=== PATIENT | female | born 1950 | race Caucasian/White ===

== ENCOUNTER 2016-07-08 13:55 | Emergency (ER) | payer MEDICARE ==
[~2016-07-08 13:55] MED LIST: ADULT LOW DOSE81 MG; ADVAIR 2501 DISK W/D; ALEVE220 M1 PO; ALPRAZOLAM0.25 M2 PO; ANTIVERT25 MG; ASMANEX 2214 PUFF/IN INH; BACLOFEN10 MG; BYETTA5 MCG/0.02; BYETTA5 MCG/0.02 SC; BYETTA5 MCG/0.02 SQ; BYSTOLIC10 MG PO; CARAFATE1 G/10 ML PO; CYCLOBENZAPRINE10 MG PO; CYCLOBENZAPRINE5 M1 PO; DULERA 100 MCG/13 GM IH; DULERA 200 MCG/13 G1 INH; DULERA 200 MCG/13 GM IH; DULERA 200 MCG/13 GM INH; EXFORGE 10-3201 TAB PO; FERROUS SU325 ( 65 ); FERROUS SULFATE1 TAB PO; FLEXERIL 10MG PO; FUROSEMIDE80 MG; GABAPENTIN100 MG; GABAPENTIN300 MG PO; GLIMEPIRIDE4 MG; GLIMEPIRIDE4 MG PO; GLUCOPHAGE XR500 MG; H PO; HUMULIN N100 U/ML; HUMULIN N100 U/ML SQ; IBUPROFEN800 MG PO; INDERAL60 MG; IPRATROPIUM BR21 MCG INH; LASIX80 M1 PO; LEVEMIR100 U/ML SQ; LEVEMIR100 UNITS/ SC; LEXAPRO10 MG PO; LEXAPRO20 M2 PO; LEXAPRO20 MG; LISINOPRIL40 M1 PO; LISINOPRIL40 MG; LYRICA50 MG/CAP PO; METFORMIN HCL1000 MG PO; MOMETASONE IH; NORCO 5/325 TAB1 TAB PO; NOVOLOG FL100 UNIT/2 SC; NOVOLOG100 U/M; NOVOLOG100 UNIT/1 SQ; OMEPRAZOLE20 M2 PO; POTASSIUM CHLO20 ME3 PO; PREDNISONE10 M1 PO; PREMARIN0.625 MG; PREVACID30 M1 PO; PREVACID30 M2 PO; SULFAMETHOXAZOL1 TAB PO; TYLENOL #31 TAB PO; TYLENOL325 M1 PO; TYLENOL325 MG PO; VALIUM10 MG PO; VANCOMYCIN HCL125 M1 PO; VENTOLIN HFA18 GM; VICTOZA0.6 MG/0.1 SQ; VIIBRYD40 MG PO; VITAMIN D50000 UNIT PO; XANAX0.5 M1 PO; XIFAXAN550 MG PO; XOPENEX HFA15 GM IH; XOPENEX HFA15 GM PO
[2016-07-08] MEDS ORDERED: TRESIBA FL100 UNIT/1 SC (17:14)
[2016-07-08] MEDS ORDERED: VITAMIN D35000 UNI2 PO (17:14)
[2016-07-08] MEDS ORDERED: CALCIUM 600 +1 EA24 PO (17:15)
[2016-07-08] MEDS ORDERED: INHALER (17:16)
[2016-07-08] MEDS ORDERED: NEBULIZER SOLUTION (17:16)
[2016-07-08] MEDS ORDERED: PROLIA60 MG/1 M1 SC (17:18)
[2016-07-08] MEDS ORDERED: NORCO 5-325 TA1 EACH PO (18:09)
[2016-07-28] MEDS ORDERED: NORVASC10 M2 PO (14:28)
[2016-07-28] MEDS ORDERED: TRAMADOL HCL50 M2 PO (15:21)
[2016-11-08] MEDS ORDERED: DULERA 100 MCG/13 G1 INH (12:25)
[2016-11-08] MEDS ORDERED: BYSTOLIC20 M1 PO (13:37)
[2016-11-08] MEDS ORDERED: LYRICA50 MG/CAP PO (13:37)
[2017-01-03] MEDS ORDERED: PACERONE200 M1 PO (13:06)
[2017-01-03] MEDS ORDERED: LASIX40 M1 PO (13:09)
[2017-01-03] MEDS ORDERED: LEVEMIR100 UNITS/ SC (13:11)
[2017-01-03] MEDS ORDERED: STOP THE FOLLOWING (13:16)
[2017-01-03] MEDS ORDERED: OMEPRAZOLE40 M2 PO (13:32)
[2017-01-03] MEDS ORDERED: TRESIBA FL100 UNIT/1 SC (15:07)
== END 2016-07-08 18:29 ==
LOC: EDMED 13:55
DX: S00.11XA Contusion of right eyelid and periocular area, initial encounter (principal); S20.211A Contusion of right front wall of thorax, initial encounter; E10.9 Type 1 diabetes mellitus without complications; I10 Essential (primary) hypertension; J44.9 Chronic obstructive pulmonary disease, unspecified; J45.909 Unspecified asthma, uncomplicated; Z86.73 Personal history of transient ischemic attack (TIA), and cerebral infarction without residual deficits; Z79.4 Long term (current) use of insulin; Z79.51 Long term (current) use of inhaled steroids; Z79.899 Other long term (current) drug therapy; W19.XXXA Unspecified fall, initial encounter; Y92.019 Unspecified place in single-family (private) house as the place of occurrence of the external cause

== ENCOUNTER 2016-07-28 15:26 | Emergency (ER) | payer MEDICARE ==
[~2016-07-28 15:26] MED LIST changes: +CALCIUM 600 +1 EA24 PO; +INHALER; +NEBULIZER SOLUTION; +NORCO 5-325 TA1 EACH PO; +NORVASC10 M2 PO; +PROLIA60 MG/1 M1 SC; +TRAMADOL HCL50 M2 PO; +TRESIBA FL100 UNIT/1 SC; +VITAMIN D35000 UNI2 PO
[2016-11-08] MEDS ORDERED: DULERA 100 MCG/13 G1 INH (12:25)
[2016-11-08] MEDS ORDERED: BYSTOLIC20 M1 PO (13:37)
[2016-11-08] MEDS ORDERED: LYRICA50 MG/CAP PO (13:37)
[2017-01-03] MEDS ORDERED: PACERONE200 M1 PO (13:06)
[2017-01-03] MEDS ORDERED: LASIX40 M1 PO (13:09)
[2017-01-03] MEDS ORDERED: LEVEMIR100 UNITS/ SC (13:11)
[2017-01-03] MEDS ORDERED: STOP THE FOLLOWING (13:16)
[2017-01-03] MEDS ORDERED: OMEPRAZOLE40 M2 PO (13:32)
[2017-01-03] MEDS ORDERED: TRESIBA FL100 UNIT/1 SC (15:07)
== END 2016-07-28 15:40 ==
LOC: EDMED 15:26
DX: S20.211A Contusion of right front wall of thorax, initial encounter (principal); J45.909 Unspecified asthma, uncomplicated; E11.22 Type 2 diabetes mellitus with diabetic chronic kidney disease; I12.9 Hypertensive chronic kidney disease with stage 1 through stage 4 chronic kidney disease, or unspecified chronic kidney disease; N18.9 Chronic kidney disease, unspecified; Z79.4 Long term (current) use of insulin; Z90.710 Acquired absence of both cervix and uterus; Z98.890 Other specified postprocedural states; Z79.51 Long term (current) use of inhaled steroids; Z79.899 Other long term (current) drug therapy; W18.11XA Fall from or off toilet without subsequent striking against object, initial encounter; Y92.019 Unspecified place in single-family (private) house as the place of occurrence of the external cause

== ENCOUNTER 2016-09-15 17:03 | Emergency (ER) | payer MEDICARE ==
[2016-09-15 19:51] LABS: BASO % 0.4 % (0-2); EOS % 6.3 % (0-7); EOSINOPHIL ABSOLUTE COUNT 0.2 tho/cmm (0.0-0.7); HGB-HEMOGLOBIN 11.7 gm/dl (12.0-15.5); IMMATURE GRANULOCYTES ABSOLUTE 0.01 tho/cmm (0-0.03); IMMATURE GRANULOCYTES PERCENT 0.4 % (0-0.3); LYMPH % 30.7 % (20-45); LYMPH ABSOLUTE COUNT 0.8 tho/cmm (0.8-4.5); MCH (MEAN CORPUSCULAR HGB) 30.8 pg (28.0-32.0); MCHC MEAN CORPUSCULAR HGB CONC 33.4 % (32.0-36.0); MCV (MEAN CELL VOLUME) 92.1 fl (82.0-96.0); MEAN PLATELET VOLUME 11.3 cmc (9.4-12.4); MONO % 8.7 % (0-12); MONOCYTE ABSOLUTE COUNT 0.2 tho/cmm (0.0-1.2); NEUTROPHIL ABSOLUTE COUNT 1.4 tho/cmm (1.6-8.0); NEUTROPHIL-AUTOMATED 1.4 tho/cmm (1.6-8.0); NEUTROPHILS % 53.5 % (40-80); PLATELET COUNT 66 tho/cmm (150-450); RED CELL DISTRIBUTION WIDTH 14.1 % (12.4-16.4); WHITE BLOOD COUNT 2.5 tho/cmm (4.0-10.0)
[2016-09-15 19:52] LABS: INR 1.1 INR (0.9-1.1); PROTHROMBIN TIME 12.8 SECONDS (9.0-13.6)
[2016-09-15 20:02] LABS: ALB/GLOB RATIO 0.9 (0.8-2.0); ALBUMIN 2.9 g/dl (3.5-5.0); ALKALINE PHOSPHATASE 94 U/L (33-138); ALT/SGPT 25 U/L (12-78); ANION GAP 9 mmol/L (0-20); AST/SGOT 31 U/L (10-40); BILIRUBIN,TOTAL 0.5 mg/dl (0-1.5); BLOOD UREA NITROGEN 20 mg/dl (6-24); CALCIUM 8.4 mg/dl (8.5-10.5); CARBON DIOXIDE-VENOUS 29 mmol/L (22-32); CHLORIDE 109 mmol/l (96-110); CREATININE 1.36 mg/dl (0.50-1.10); GLUCOSE 118 mg/dL (70-110); POTASSIUM 4.3 mmol/L (3.7-5.1); SODIUM 143 mmol/L (135-145); eGFR VALUE FOR BLACK 47 mL/Min
[2016-11-08] MEDS ORDERED: DULERA 100 MCG/13 G1 INH (12:25)
[2016-11-08] MEDS ORDERED: BYSTOLIC20 M1 PO (13:37)
[2016-11-08] MEDS ORDERED: LYRICA50 MG/CAP PO (13:37)
[2017-01-03] MEDS ORDERED: PACERONE200 M1 PO (13:06)
[2017-01-03] MEDS ORDERED: LASIX40 M1 PO (13:09)
[2017-01-03] MEDS ORDERED: LEVEMIR100 UNITS/ SC (13:11)
[2017-01-03] MEDS ORDERED: STOP THE FOLLOWING (13:16)
[2017-01-03] MEDS ORDERED: OMEPRAZOLE40 M2 PO (13:32)
[2017-01-03] MEDS ORDERED: TRESIBA FL100 UNIT/1 SC (15:07)
== END 2016-09-15 20:45 ==
LOC: EDMED 17:03
PROVIDERS: Emergency Medicine
DX: R51 Headache (principal); I50.9 Heart failure, unspecified; I11.0 Hypertensive heart disease with heart failure; E10.9 Type 1 diabetes mellitus without complications; J44.9 Chronic obstructive pulmonary disease, unspecified; J45.909 Unspecified asthma, uncomplicated; Z86.73 Personal history of transient ischemic attack (TIA), and cerebral infarction without residual deficits; N19 Unspecified kidney failure; K76.9 Liver disease, unspecified; Z79.4 Long term (current) use of insulin; Z79.899 Other long term (current) drug therapy
CPT/HCPCS: J7030

== ENCOUNTER 2016-12-11 15:53 | Inpatient (IN) | payer MEDICARE ==
[~2016-12-11] VITALS: Ht 152.4 cm; Wt 86.2 kg
[~2016-12-11 15:53] MED LIST changes: +BYSTOLIC20 M1 PO; +DULERA 100 MCG/13 G1 INH
[2016-12-11] MEDS ORDERED: HYDRALAZINE HCL25 M1 PO (16:21)
[2016-12-11 16:43] LABS: BASO % 0.3 % (0-2); EOSINOPHIL ABSOLUTE COUNT 0.2 tho/cmm (0.0-0.7); HGB-HEMOGLOBIN 11.3 gm/dl (12.0-15.5); IMMATURE GRANULOCYTES ABSOLUTE 0.01 tho/cmm (0-0.03); IMMATURE GRANULOCYTES PERCENT 0.2 % (0-0.3); LYMPH % 15.2 % (20-45); LYMPH ABSOLUTE COUNT 0.9 tho/cmm (0.8-4.5); MCH (MEAN CORPUSCULAR HGB) 30.2 pg (28.0-32.0); MCHC MEAN CORPUSCULAR HGB CONC 32.3 % (32.0-36.0); MCV (MEAN CELL VOLUME) 93.6 fl (82.0-96.0); MEAN PLATELET VOLUME 12.5 cmc (9.4-12.4); MONO % 11.4 % (0-12); MONOCYTE ABSOLUTE COUNT 0.7 tho/cmm (0.0-1.2); NEUTROPHIL ABSOLUTE COUNT 4.3 tho/cmm (1.6-8.0); NEUTROPHIL-AUTOMATED 4.3 tho/cmm (1.6-8.0); NEUTROPHILS % 69.9 % (40-80); PLATELET COUNT 107 tho/cmm (150-450); RED BLOOD COUNT 3.74 mil/cmm (4.00-5.20); RED CELL DISTRIBUTION WIDTH 15.1 % (12.4-16.4); WHITE BLOOD COUNT 6.1 tho/cmm (4.0-10.0)
[2016-12-11] MEDS ORDERED: ALEVE220 M3 PO (16:58)
[2016-12-11 17:00] LABS: ALBUMIN 3.4 g/dl (3.5-5.0); ALKALINE PHOSPHATASE 96 U/L (33-138); ALT/SGPT 23 U/L (12-78); BLOOD UREA NITROGEN 65 mg/dl (6-24); CALCIUM 7.5 mg/dl (8.5-10.5); CARBON DIOXIDE-VENOUS 19 mmol/L (22-32); CHLORIDE 104 mmol/l (96-110); GLUCOSE 126 mg/dL (70-110); SODIUM 133 mmol/L (135-145); eGFR VALUE FOR BLACK 12 mL/Min
[2016-12-11 17:12] LABS: ANION GAP 15 mmol/L (0-20); AST/SGOT 31 U/L (10-40); POTASSIUM 5.4 mmol/L (3.7-5.1)
[2016-12-11 19:58] LABS: ANION GAP 10 mmol/L (0-20); BLOOD UREA NITROGEN 67 mg/dl (6-24); CALCIUM 7.8 mg/dl (8.5-10.5); CARBON DIOXIDE-VENOUS 23 mmol/L (22-32); CHLORIDE 105 mmol/l (96-110); GLUCOSE 118 mg/dL (70-110); POTASSIUM 5.3 mmol/L (3.7-5.1); SODIUM 133 mmol/L (135-145); eGFR VALUE FOR BLACK 12 mL/Min
[2016-12-12 00:01] LABS: URINE TOTAL PROTEIN-RANDOM 6.1 mg/dl (<11.8)
[2016-12-12 02:54] LABS: URINE PRT/CR RATIO 0.09 Ratio (0.0-0.20)
[2016-12-12 05:39] LABS: BASO % 0.2 % (0-2); EOS % 4.2 % (0-7); EOSINOPHIL ABSOLUTE COUNT 0.2 tho/cmm (0.0-0.7); HCT-HEMATOCRIT 31.7 % (34.0-49.0); HGB-HEMOGLOBIN 10.3 gm/dl (12.0-15.5); IMMATURE GRANULOCYTES ABSOLUTE 0.02 tho/cmm (0-0.03); IMMATURE GRANULOCYTES PERCENT 0.4 % (0-0.3); LYMPH % 14.3 % (20-45); LYMPH ABSOLUTE COUNT 0.7 tho/cmm (0.8-4.5); MCH (MEAN CORPUSCULAR HGB) 30.4 pg (28.0-32.0); MCHC MEAN CORPUSCULAR HGB CONC 32.5 % (32.0-36.0); MCV (MEAN CELL VOLUME) 93.5 fl (82.0-96.0); MONO % 13.9 % (0-12); MONOCYTE ABSOLUTE COUNT 0.7 tho/cmm (0.0-1.2); NEUTROPHIL ABSOLUTE COUNT 3.3 tho/cmm (1.6-8.0); NEUTROPHIL-AUTOMATED 3.3 tho/cmm (1.6-8.0); PLATELET COUNT 86 tho/cmm (150-450); RED BLOOD COUNT 3.39 mil/cmm (4.00-5.20); RED CELL DISTRIBUTION WIDTH 15.2 % (12.4-16.4)
[2016-12-12 05:57] LABS: ALKALINE PHOSPHATASE 102 U/L (33-138); ALT/SGPT 22 U/L (12-78); ANION GAP 17 mmol/L (0-20); AST/SGOT 27 U/L (10-40); BILIRUBIN,TOTAL 0.9 mg/dl (0-1.5); BLOOD UREA NITROGEN 66 mg/dl (6-24); CALCIUM 7.3 mg/dl (8.5-10.5); CARBON DIOXIDE-VENOUS 20 mmol/L (22-32); CHLORIDE 105 mmol/l (96-110); CREATININE 4.19 mg/dl (0.50-1.10); GLUCOSE 154 mg/dL (70-110); POTASSIUM 5.1 mmol/L (3.7-5.1); SODIUM 137 mmol/L (135-145); eGFR VALUE FOR BLACK 12 mL/Min
[2016-12-12 16:56] LABS: IRON 100 ug/dl (37-170); IRON BINDING CAPACITY 255 ug/dl (250-450)
[2016-12-12 18:40] LABS: URINE BILIRUBIN NEGATIVE (NEG); URINE BLOOD NEGATIVE (NEG); URINE GLUCOSE (UA) NEGATIVE (NEG); URINE KETONE NEGATIVE (NEG); URINE LEUKOCYTE ESTERASE POSITIVE (NEG); URINE NITRITE NEGATIVE (NEG); URINE PROTEIN NEGATIVE (NEG); URINE SPECIFIC GRAVITY 1.015 (1.003-1.030)
[2016-12-12 18:48] LABS: URINE APPEARANCE CLEAR; URINE COLOR YELLOW
[2016-12-12 18:49] LABS: URINE AMORPHOUS 1+; URINE EPITHELIAL CELLS RARE /[HPF] (0-10); URINE RBC 0 /[HPF] (0-5); URINE WBC 0 /[HPF] (0-5)
[2016-12-13 05:57] LABS: BLOOD UREA NITROGEN 68 mg/dl (6-24); CALCIUM 6.9 mg/dl (8.5-10.5); CARBON DIOXIDE-VENOUS 20 mmol/L (22-32); CHLORIDE 106 mmol/l (96-110); CREATININE 3.89 mg/dl (0.50-1.10); GLUCOSE 128 mg/dL (70-110); PHOSPHOROUS 4.4 mg/dl (2.5-4.9); SODIUM 138 mmol/L (135-145); eGFR VALUE FOR BLACK 13 mL/Min
[2016-12-13 06:01] LABS: ANION GAP 17 mmol/L (0-20); MAGNESIUM 3.1 mg/dl (1.8-2.6); POTASSIUM 4.5 mmol/L (3.7-5.1)
[2016-12-14 04:55] LABS: BASO % 0.5 % (0-2); EOSINOPHIL ABSOLUTE COUNT 0.2 tho/cmm (0.0-0.7); HCT-HEMATOCRIT 30.8 % (34.0-49.0); HGB-HEMOGLOBIN 10.1 gm/dl (12.0-15.5); IMMATURE GRANULOCYTES ABSOLUTE 0.01 tho/cmm (0-0.03); IMMATURE GRANULOCYTES PERCENT 0.3 % (0-0.3); LYMPH % 12.3 % (20-45); LYMPH ABSOLUTE COUNT 0.5 tho/cmm (0.8-4.5); MCH (MEAN CORPUSCULAR HGB) 30.3 pg (28.0-32.0); MCHC MEAN CORPUSCULAR HGB CONC 32.8 % (32.0-36.0); MCV (MEAN CELL VOLUME) 92.5 fl (82.0-96.0); MEAN PLATELET VOLUME 11.7 cmc (9.4-12.4); MONO % 14.2 % (0-12); MONOCYTE ABSOLUTE COUNT 0.5 tho/cmm (0.0-1.2); NEUTROPHIL ABSOLUTE COUNT 2.6 tho/cmm (1.6-8.0); NEUTROPHIL-AUTOMATED 2.6 tho/cmm (1.6-8.0); NEUTROPHILS % 68.7 % (40-80); PLATELET COUNT 75 tho/cmm (150-450); RED BLOOD COUNT 3.33 mil/cmm (4.00-5.20); RED CELL DISTRIBUTION WIDTH 14.9 % (12.4-16.4); WHITE BLOOD COUNT 3.7 tho/cmm (4.0-10.0)
[2016-12-14 05:09] LABS: ANION GAP 11 mmol/L (0-20); BLOOD UREA NITROGEN 64 mg/dl (6-24); CALCIUM 6.9 mg/dl (8.5-10.5); CARBON DIOXIDE-VENOUS 24 mmol/L (22-32); CHLORIDE 105 mmol/l (96-110); CREATININE 3.44 mg/dl (0.50-1.10); GLUCOSE 128 mg/dL (70-110); MAGNESIUM 2.8 mg/dl (1.8-2.6); POTASSIUM 4.3 mmol/L (3.7-5.1); SODIUM 136 mmol/L (135-145); eGFR VALUE FOR BLACK 15 mL/Min
[2016-12-15 05:12] LABS: BASO % 0.3 % (0-2); EOS % 4.7 % (0-7); EOSINOPHIL ABSOLUTE COUNT 0.2 tho/cmm (0.0-0.7); HCT-HEMATOCRIT 31.1 % (34.0-49.0); HGB-HEMOGLOBIN 10.2 gm/dl (12.0-15.5); IMMATURE GRANULOCYTES ABSOLUTE 0.01 tho/cmm (0-0.03); IMMATURE GRANULOCYTES PERCENT 0.3 % (0-0.3); LYMPH % 11.1 % (20-45); LYMPH ABSOLUTE COUNT 0.4 tho/cmm (0.8-4.5); MCH (MEAN CORPUSCULAR HGB) 30.3 pg (28.0-32.0); MCHC MEAN CORPUSCULAR HGB CONC 32.8 % (32.0-36.0); MCV (MEAN CELL VOLUME) 92.3 fl (82.0-96.0); MEAN PLATELET VOLUME 11.1 cmc (9.4-12.4); MONO % 16.7 % (0-12); MONOCYTE ABSOLUTE COUNT 0.6 tho/cmm (0.0-1.2); NEUTROPHIL ABSOLUTE COUNT 2.4 tho/cmm (1.6-8.0); NEUTROPHIL-AUTOMATED 2.4 tho/cmm (1.6-8.0); NEUTROPHILS % 66.9 % (40-80); PLATELET COUNT 71 tho/cmm (150-450); RED BLOOD COUNT 3.37 mil/cmm (4.00-5.20); RED CELL DISTRIBUTION WIDTH 15.1 % (12.4-16.4); WHITE BLOOD COUNT 3.6 tho/cmm (4.0-10.0)
[2016-12-15 05:18] LABS: ALBUMIN 2.8 g/dl (3.5-5.0); ANION GAP 11 mmol/L (0-20); BLOOD UREA NITROGEN 61 mg/dl (6-24); CALCIUM 6.9 mg/dl (8.5-10.5); CARBON DIOXIDE-VENOUS 25 mmol/L (22-32); CHLORIDE 104 mmol/l (96-110); CREATININE 2.89 mg/dl (0.50-1.10); GLUCOSE 117 mg/dL (70-110); MAGNESIUM 2.7 mg/dl (1.8-2.6); PHOSPHOROUS 4.4 mg/dl (2.5-4.9); POTASSIUM 4.2 mmol/L (3.7-5.1); SODIUM 136 mmol/L (135-145); eGFR VALUE FOR BLACK 19 mL/Min
[2016-12-16 05:14] LABS: HGB-HEMOGLOBIN 10.1 gm/dl (12.0-15.5); PLATELET COUNT 66 tho/cmm (150-450)
[2016-12-16 05:31] LABS: ALBUMIN 2.9 g/dl (3.5-5.0); ANION GAP 12 mmol/L (0-20); BLOOD UREA NITROGEN 55 mg/dl (6-24); CALCIUM 7.4 mg/dl (8.5-10.5); CARBON DIOXIDE-VENOUS 25 mmol/L (22-32); CHLORIDE 107 mmol/l (96-110); CREATININE 2.49 mg/dl (0.50-1.10); GLUCOSE 160 mg/dL (70-110); PHOSPHOROUS 3.8 mg/dl (2.5-4.9); POTASSIUM 3.9 mmol/L (3.7-5.1); SODIUM 140 mmol/L (135-145); eGFR VALUE FOR BLACK 22 mL/Min
[2016-12-17 05:29] LABS: BASO % 0.3 % (0-2); EOS % 3.7 % (0-7); EOSINOPHIL ABSOLUTE COUNT 0.1 tho/cmm (0.0-0.7); HCT-HEMATOCRIT 32.1 % (34.0-49.0); HGB-HEMOGLOBIN 10.4 gm/dl (12.0-15.5); LYMPH % 17.5 % (20-45); LYMPH ABSOLUTE COUNT 0.5 tho/cmm (0.8-4.5); MCH (MEAN CORPUSCULAR HGB) 29.8 pg (28.0-32.0); MCHC MEAN CORPUSCULAR HGB CONC 32.4 % (32.0-36.0); MEAN PLATELET VOLUME 11.4 cmc (9.4-12.4); MONO % 16.8 % (0-12); MONOCYTE ABSOLUTE COUNT 0.5 tho/cmm (0.0-1.2); NEUTROPHIL ABSOLUTE COUNT 1.8 tho/cmm (1.6-8.0); NEUTROPHIL-AUTOMATED 1.8 tho/cmm (1.6-8.0); NEUTROPHILS % 61.7 % (40-80); PLATELET COUNT 72 tho/cmm (150-450); RED BLOOD COUNT 3.49 mil/cmm (4.00-5.20)
[2016-12-17 05:37] LABS: ANION GAP 11 mmol/L (0-20); BLOOD UREA NITROGEN 48 mg/dl (6-24); CALCIUM 7.6 mg/dl (8.5-10.5); CARBON DIOXIDE-VENOUS 26 mmol/L (22-32); CHLORIDE 108 mmol/l (96-110); CREATININE 2.17 mg/dl (0.50-1.10); GLUCOSE 137 mg/dL (70-110); PHOSPHOROUS 3.3 mg/dl (2.5-4.9); SODIUM 141 mmol/L (135-145); eGFR VALUE FOR BLACK 26 mL/Min
[2016-12-17] MEDS ORDERED: COMBIVENT RESPIM4 G1 INH (14:45)
[2016-12-17] MEDS ORDERED: ALDACTONE50 M1 PO (14:51)
[2016-12-17] MEDS ORDERED: PROAIR RESPICL90 MCG INH (14:54)
== END 2016-12-17 17:01 | DRG 682 ==
LOC: EDMED 15:53 → EMR2 19:16 → PCUA 19:16
PROVIDERS: Emergency Medicine; Family Medicine; Internal Medicine Interventional Cardiology; Internal Medicine Nephrology; Physician Assistant; ADMIT Hospitalist
DX: N17.9 Acute kidney failure, unspecified (principal); I50.33 Acute on chronic diastolic (congestive) heart failure; E87.2 Acidosis; D61.818 Other pancytopenia; R18.8 Other ascites; D69.6 Thrombocytopenia, unspecified; E87.5 Hyperkalemia; I12.9 Hypertensive chronic kidney disease with stage 1 through stage 4 chronic kidney disease, or unspecified chronic kidney disease; N18.3 Chronic kidney disease, stage 3 (moderate); K75.81 Nonalcoholic steatohepatitis (NASH); E11.9 Type 2 diabetes mellitus without complications; J44.9 Chronic obstructive pulmonary disease, unspecified
CPT/HCPCS: C8929; J1644; J1650; J1815; J1940; J2405